=== PATIENT | female | born 1995 | race Hispanic/Latino ===

== ENCOUNTER 2019-04-04 16:34 | Emergency (ER) | payer BC ==
[~2019-04-04 16:34] MED LIST: ALBU2.5V2 IH; ALBU8.5H8 IH; BENZ-39 PO; FLUT1DIS IH; IPRA3AMP24 IH; LEVO500T2 PO; LEVO88TA7 PO; METH4TAB3 PO; MONT10TA21 PO; PRED20TA3 PO
[2019-04-04] MEDS ORDERED: METHYLPREDNISOLONE SOD SUCC 40MG/ML 1ML ONE (16:58)
[2019-04-04] MEDS ORDERED: IPRATROPIUM/ALBUTEROL SULFATE 3 ML SOLUTION IH ONE (17:04)
[2019-04-04] MEDS ORDERED: ALBUTEROL SULFATE 0.083% 2.5 MG/3 ML INH IH ONE (18:30)
== END 2019-04-04 19:21 | disposition home or self-care (01) ==
LOC: EDH 16:34
DX: J45.901 Unspecified asthma with (acute) exacerbation (principal); E07.9 Disorder of thyroid, unspecified; Z88.0 Allergy status to penicillin; Z88.8 Allergy status to other drugs, medicaments and biological substances
CPT/HCPCS: 71045; 94640 ×2; 96374; 99284; J2920

== ENCOUNTER 2019-08-07 21:53 | Emergency (ER) | payer BC, OTHER ==
[2019-08-07] MEDS ORDERED: DIPHENHYDRAMINE HCL 25 MG CAPSULE ONE (23:14)
[2019-08-07] MEDS ORDERED: IPRATROPIUM/ALBUTEROL SULFATE 3 ML SOLUTION IH ONE (23:21)
[2019-08-07 23:24] LABS: APPEARANCE,URINE Cloudy (CLEAR); BILIRUBIN,URINE Negative (NEGATIVE); COLOR,URINE Yellow (YELLOW); GLUCOSE, URINE (UA) Negative (NEGATIVE); KETONES,URINE Trace mg/dL (NEGATIVE); LEUKOCYTE ESTERASE ,URINE Negative (NEGATIVE); NITRATE,URINE Negative (NEGATIVE); OCCULT BLOOD,URINE Negative (NEGATIVE); PH,URINE 6.5 (5.0-8.0); PROTEIN,URINE POS 1+ mg/dL (NEGATIVE)
[2019-08-07 23:26] LABS: HCG,QUAL RESULT NEGATIVE (NEGATIVE)
[2019-08-07 23:31] LABS: BACTERIA,URINE None Seen /HPF (None Seen); MUCUS,URINE Few LPF (None Seen); RBC,URINE None Seen /HPF (0-1); SQUAMOUS EPITHELIAL CELL,UR Moderate /HPF (0-2); WBC,URINE None Seen /HPF (0-1)
[2019-08-07 23:40] LABS: RAPID GROUP A STREP NEGATIVE (NEGATIVE)
[2019-08-07 23:51] LABS: INFLUENZA TYPE A NEGATIVE FOR TYPE A (NEG); INFLUENZA TYPE B NEGATIVE FOR TYPE B (NEG)
[2019-08-08] MEDS ORDERED: METHYLPREDNISOLONE SOD SUCC 125MG/2ML VIAL ONE (00:15)
[2019-08-08] MEDS ORDERED: ALBUTEROL SULFATE 0.083% 2.5 MG/3 ML INH IH ONE (00:17)
[2019-08-08] MEDS ORDERED: PREDNISONE 20 MG TABLET ONE (00:50)
[2019-08-08] MEDS ORDERED: IPRATROPIUM/ALBUTEROL SULFATE 3 ML SOLUTION IH ONE (00:50)
== END 2019-08-08 02:13 | disposition home or self-care (01) ==
LOC: EDH 21:53
DX: J45.901 Unspecified asthma with (acute) exacerbation (principal); E07.9 Disorder of thyroid, unspecified; Z90.89 Acquired absence of other organs; Z88.0 Allergy status to penicillin; Z72.0 Tobacco use
CPT/HCPCS: 71046; 81001; 81025; 87804 ×2; 87880; 94640 ×3; 96372; 99285; J2930; Q0163

== ENCOUNTER 2019-09-19 01:37 | Emergency (ER) | payer OTHER ==
[2019-09-19] MEDS ORDERED: ALBUTEROL INHALER 90MCG/INH IH ONE (01:38)
[2019-09-19] MEDS ORDERED: KETOROLAC TROMETHAMINE 30MG/ML IV ONE (01:38)
[2019-09-19] MEDS ORDERED: DEXAMETHASONE SOD PHOSPHATE 10MG/ML 1ML VIAL IM ONE (01:38)
[2019-09-19] MEDS ORDERED: LEVOFLOXACIN 500 MG/D5W 100 ML 100 ML IV ONE (01:38)
[2019-09-19] MEDS ORDERED: ACETAMINOPHEN EXTRA STRENGTH 500 MG TABLET PO ONE (01:38)
[2019-09-19] MEDS ORDERED: SODIUM CHLORIDE 0.9% 500ML 500 ML IV ONE (01:38)
[2019-09-19 02:39] LABS: BASOPHILS % (AUTO) 0.6 % (0.0-5.0); EOSINOPHILS % (AUTO) 3.9 % (0.0-8.0); HEMATOCRIT 42.2 % (36-48); LYMPHOCYTES % (AUTO) 24.6 % (21.0-51.0); MEAN CORPUSCULAR HEMOGLOBIN 28.9 pg (27.0-33.0); MEAN CORPUSCULAR HGB CONC 33.2 g/dL (32.0-36.0); NEUTROPHILS % (AUTO) 61.6 % (40.0-77.0); PLATELET COUNT (AUTO) 362 K/uL (130-400); RED BLOOD CELL COUNT(AUTO) 4.85 MIL/uL (4.00-5.50); RED CELL DISTRIBUTION WIDTH 13.2 % (11.0-15.5); WHITE BLOOD COUNT (AUTO) 12.6 K/uL (4.8-10.8)
[2019-09-19 02:49] LABS: POTASSIUM 3.6 mmol/L (3.5-5.1)
[2019-09-19 02:54] LABS: ALBUMIN 3.8 g/dL (3.5-5.0); BILIRUBIN,DIRECT 0.2 mg/dL (0.0-0.3); BILIRUBIN,TOTAL 0.4 mg/dL (0.2-1.0); CRP QUANTITATIVE 25.6 mg/L (0.00-9.0); TOTAL PROTEIN, SERUM 7.9 g/dL (6.0-8.3)
[2019-09-19 03:08] LABS: FERRITIN 58 ng/mL (15-150)
[2019-09-19] MEDS ORDERED: ONDANSETRON HCL 4 MG/2 ML VIAL ONE (03:09)
[2019-09-19 03:10] LABS: B-TYPE NATRIURETIC PEPTIDE 5 pg/mL (0-100)
[2019-09-19] MEDS ORDERED: MAGNESIUM 2GM PREMIX 50ML 50 ML IV ONE (04:24)
== END 2019-09-19 07:15 | disposition home or self-care (01) ==
LOC: EDH 01:37
DX: U07.1 COVID-19 (principal); J45.901 Unspecified asthma with (acute) exacerbation; R05 Cough; R50.9 Fever, unspecified; R06.02 Shortness of breath; Z88.0 Allergy status to penicillin; Z88.8 Allergy status to other drugs, medicaments and biological substances; Z98.890 Other specified postprocedural states
CPT/HCPCS: 36415; 71045; 80048; 80076; 81025; 82550; 82728; 83605; 83880; 84484; 85025; 85378; 86140; 87040; 93005; 96365; 96366; 96367; 96375; 99291; J1100; J1885; J1956; J2405; J3475; J7040

== ENCOUNTER 2019-09-26 10:04 | Emergency (ER) | payer OTHER ==
[2019-09-26] MEDS ORDERED: ALBUTEROL INHALER 90MCG/INH IH ONE (10:47)
[2019-09-26] MEDS ORDERED: KETOROLAC TROMETHAMINE 30MG/ML ONE (10:48)
[2019-09-26] MEDS ORDERED: METHYLPREDNISOLONE SOD SUCC 125MG/2ML VIAL ONE (10:48)
[2019-09-26 11:23] LABS: BASOPHILS % (AUTO) 0.5 % (0.0-5.0); EOSINOPHILS % (AUTO) 7.3 % (0.0-8.0); HEMATOCRIT 43.4 % (36-48); MEAN CORPUSCULAR HEMOGLOBIN 28.3 pg (27.0-33.0); MEAN CORPUSCULAR HGB CONC 32.7 g/dL (32.0-36.0); MEAN CORPUSCULAR VOLUME 86.5 fL (79-99); NEUTROPHILS % (AUTO) 63.7 % (40.0-77.0); PLATELET COUNT (AUTO) 325 K/uL (130-400); RED BLOOD CELL COUNT(AUTO) 5.02 MIL/uL (4.00-5.50); RED CELL DISTRIBUTION WIDTH 13.2 % (11.0-15.5); WHITE BLOOD COUNT (AUTO) 15.4 K/uL (4.8-10.8)
[2019-09-26 11:46] LABS: POTASSIUM 3.9 mmol/L (3.5-5.1)
[2019-09-26 11:54] LABS: ALBUMIN 3.7 g/dL (3.5-5.0); BILIRUBIN,TOTAL 0.4 mg/dL (0.2-1.0); TOTAL PROTEIN, SERUM 7.8 g/dL (6.0-8.3)
== END 2019-09-26 13:56 | disposition home or self-care (01) ==
LOC: EDH 10:04
DX: U07.1 COVID-19 (principal); J45.901 Unspecified asthma with (acute) exacerbation; Z88.0 Allergy status to penicillin; E07.9 Disorder of thyroid, unspecified; Z98.890 Other specified postprocedural states; Z88.8 Allergy status to other drugs, medicaments and biological substances
CPT/HCPCS: 36415; 71045; 80053; 85025; 96374; 96375; 99291; J1885; J2930

== ENCOUNTER 2020-02-16 17:33 | Emergency (ER) | payer OTHER, SELFPAY ==
[2020-02-16] MEDS ORDERED: ONDANSETRON 4 MG TABLET ONE (17:47)
== END 2020-02-16 18:56 | disposition home or self-care (01) ==
LOC: EDH 17:33
DX: J45.909 Unspecified asthma, uncomplicated (principal); R07.89 Other chest pain; R06.00 Dyspnea, unspecified; R11.0 Nausea; G43.909 Migraine, unspecified, not intractable, without status migrainosus; Z90.49 Acquired absence of other specified parts of digestive tract; Z88.0 Allergy status to penicillin; Z88.8 Allergy status to other drugs, medicaments and biological substances
CPT/HCPCS: 71045; 93005; 99283; Q0162

== ENCOUNTER 2020-03-16 10:36 | Emergency (ER) | payer SELFPAY ==
[2020-03-16 10:53] LABS: BASOPHILS % (AUTO) 0.8 % (0.0-5.0); EOSINOPHILS % (AUTO) 8.2 % (0.0-8.0); HEMATOCRIT 44.1 % (36-48); MEAN CORPUSCULAR HEMOGLOBIN 27.5 pg (27.0-33.0); MEAN CORPUSCULAR HGB CONC 31.7 g/dL (32.0-36.0); MEAN CORPUSCULAR VOLUME 86.6 fL (79-99); MONOCYTES % (AUTO) 7.5 % (3.0-13.0); NEUTROPHILS % (AUTO) 47.1 % (40.0-77.0); PLATELET COUNT (AUTO) 354 K/uL (130-400); RED BLOOD CELL COUNT(AUTO) 5.09 MIL/uL (4.00-5.50); RED CELL DISTRIBUTION WIDTH 14.7 % (11.0-15.5); WHITE BLOOD COUNT (AUTO) 11.9 K/uL (4.8-10.8)
[2020-03-16] MEDS ORDERED: IPRATROPIUM/ALBUTEROL SULFATE 3 ML SOLUTION IH ONE (11:03)
[2020-03-16] MEDS ORDERED: ALBUTEROL SULFATE 0.083% 2.5 MG/3 ML INH IH ONE (11:03)
[2020-03-16] MEDS ORDERED: METHYLPREDNISOLONE SOD SUCC 125MG/2ML VIAL ONE (11:05)
[2020-03-16] MEDS ORDERED: CEFTRIAXONE SODIUM 1 GM ONE (11:55)
[2020-03-16] MEDS ORDERED: AZITHROMYCIN 250 MG TABLET PO ONE (11:56)
[2020-03-16 12:03] LABS: POTASSIUM 3.6 mmol/L (3.5-5.1)
[2020-03-16 12:08] LABS: ALBUMIN 3.5 g/dL (3.5-5.0); BILIRUBIN,TOTAL 0.2 mg/dL (0.2-1.0); TOTAL PROTEIN, SERUM 7.7 g/dL (6.0-8.3)
== END 2020-03-16 13:36 | disposition home or self-care (01) ==
LOC: EDH 10:36
DX: J45.21 Mild intermittent asthma with (acute) exacerbation (principal); Z20.828 Contact with and (suspected) exposure to other viral communicable diseases; Z88.0 Allergy status to penicillin; G43.909 Migraine, unspecified, not intractable, without status migrainosus
CPT/HCPCS: 36415; 71045; 80053; 85025; 87426; 93005; 94640 ×3; 96374; 96375; 99291; J0696; J2930; U0003

== ENCOUNTER 2020-03-16 18:41 | Inpatient (IN) | payer SELFPAY ==
[2020-03-16] MEDS ORDERED: METHYLPREDNISOLONE SOD SUCC 125MG/2ML VIAL ONE (18:52)
[2020-03-16] MEDS ORDERED: IPRATROPIUM/ALBUTEROL SULFATE 3 ML SOLUTION IH ONE (18:52)
[2020-03-16] MEDS ORDERED: IPRATROPIUM/ALBUTEROL SULFATE 3 ML SOLUTION IH PRN (19:45)
[2020-03-16] MEDS ORDERED: ERGOCALCIFEROL (VITAMIN D2) 50,000 UNIT CAPSULE PO ONE (19:45)
[2020-03-16] MEDS ORDERED: MAGNESIUM 2GM PREMIX 50ML 50 ML IV SCH (19:45)
[2020-03-16] MEDS ORDERED: DIPHENHYDRAMINE HCL 25 MG CAPSULE PO PRN (20:00)
[2020-03-16] MEDS: AZITHROMYCIN 500MG+NS 250ML 250 ML IV SCH (20:00)
[2020-03-16] MEDS ORDERED: ONDANSETRON HCL 4 MG/2 ML VIAL IV PRN (20:00)
[2020-03-16] MEDS ORDERED: NITROGLYCERIN 0.4 MG SL TAB SL PRN (20:00)
[2020-03-16] MEDS ORDERED: ACETAMINOPHEN 325 MG TAB PO PRN ×2 (20:00)
[2020-03-16 20:13] LABS: CREATINE KINASE, TOTAL 279 U/L (21-232); LACTATE DEHYDROGENASE 287 U/L (81-234)
[2020-03-16] MEDS ORDERED: IOHEXOL-350 75 ML VIAL IV ONE (20:18)
[2020-03-16 20:22] LABS: FERRITIN 27 ng/mL (15-150)
[2020-03-16 20:28] LABS: HEMOGLOBIN A1C 5.9 % (4.0-6.0)
[2020-03-16 20:46] LABS: ABG BASE EXCESS -4.2 mmol/L (-2.0-3.0); ABG HCO3 18.1 mmol/L (21.0-28.0); ABG OXYGEN SATURATION 91.7 % (95.0-99.0); ABG PCO2 27 mmHg (32-45)
[2020-03-16] MEDS: ACETYLCYSTEINE 600 MG CAPSULE PO SCH (21:00)
[2020-03-16] MEDS: FAMOTIDINE 20MG TAB 20 MG TAB PO SCH (21:00)
[2020-03-16] MEDS ORDERED: FAMOTIDINE 20MG TAB 20 MG TAB ONE (21:02)
[2020-03-16] MEDS ORDERED: ERGOCALCIFEROL (VITAMIN D2) 50,000 UNIT CAPSULE ONE (21:02)
[2020-03-16] MEDS ORDERED: ACETYLCYSTEINE 600 MG CAPSULE ONE (21:03)
[2020-03-16] MEDS ORDERED: SODIUM CHLORIDE 0.9% 1000ML 1,000 ML IV SCH (22:00)
[2020-03-16] MEDS ORDERED: IPRATROPIUM/ALBUTEROL SULFATE 3 ML SOLUTION IH SCH (22:00)
[2020-03-17] MEDS ORDERED: ACETAMINOPHEN 325 MG TAB ONE (00:39)
[2020-03-17] MEDS ORDERED: MAGNESIUM 2GM PREMIX 50ML 50 ML IV ONE (00:51)
[2020-03-17 01:24] LABS: AMPHET/METH SCREEN,URINE NEGATIVE (NEGATIVE); BARBITURATE SCREEN, URINE NEGATIVE (NEGATIVE); BENZODIAZEPINES SCREEN,URINE NEGATIVE (NEGATIVE); CANNABINOID SCREEN,URINE NEGATIVE (NEGATIVE); COCAINE SCREEN,URINE NEGATIVE (NEGATIVE); OPIATE SCREEN,URINE NEGATIVE (NEGATIVE); PHENCYCLIDINE SCREEN,URINE NEGATIVE (NEGATIVE)
[2020-03-17] MEDS: METHYLPREDNISOLONE SOD SUCC 40MG/ML 1ML IVP SCH ×3 (04:00→21:37)
[2020-03-17 05:59] LABS: BASOPHILS % (AUTO) 0.2 % (0.0-5.0); EOSINOPHILS % (AUTO) 0.2 % (0.0-8.0); HEMATOCRIT 40.9 % (36-48); LYMPHOCYTES % (AUTO) 13.8 % (21.0-51.0); MEAN CORPUSCULAR HEMOGLOBIN 27.4 pg (27.0-33.0); MEAN CORPUSCULAR VOLUME 85.6 fL (79-99); MONOCYTES % (AUTO) 3.9 % (3.0-13.0); NEUTROPHILS % (AUTO) 80.8 % (40.0-77.0); PLATELET COUNT (AUTO) 357 K/uL (130-400); RED BLOOD CELL COUNT(AUTO) 4.78 MIL/uL (4.00-5.50); RED CELL DISTRIBUTION WIDTH 15.1 % (11.0-15.5); WHITE BLOOD COUNT (AUTO) 12.9 K/uL (4.8-10.8)
[2020-03-17 06:12] LABS: ALANINE AMINOTRANSFERASE 47 U/L (12-78); ALBUMIN 3.4 g/dL (3.5-5.0); ASPARTATE AMINOTRANSFERASE 21 U/L (10-37); BILIRUBIN,TOTAL 0.2 mg/dL (0.2-1.0); CARBON DIOXIDE 23 mmol/L (21-32); CHLORIDE 108 mmol/L (101-111); CREATININE 0.7 mg/dL (0.5-1.5); GLOMERULAR FILTR. RATE CALC 110 mL/min (>60); GLUCOSE,RANDOM 141 mg/dL (70-105); LACTATE DEHYDROGENASE 167 U/L (81-234); POTASSIUM 4.3 mmol/L (3.5-5.1); SODIUM SERUM 141 mmol/L (136-145); TOTAL PROTEIN, SERUM 7.5 g/dL (6.0-8.3); UREA NITROGEN, BLOOD 13 mg/dL (7-18)
[2020-03-17] MEDS ORDERED: SODIUM CHLORIDE 3% FOR INHALATION 4 ML/AMP VIAL.NEB IH ONE ×2 (06:24→09:58)
[2020-03-17] MEDS ORDERED: IPRATROPIUM 0.5 MG/2.5 ML INH IH ONE ×3 (06:24→13:58)
[2020-03-17] MEDS: IPRATROPIUM 0.5 MG/2.5 ML INH IH SCH ×4 (06:25→22:36)
[2020-03-17] MEDS ORDERED: ASCORBIC ACID 500 MG TAB ONE (08:53)
[2020-03-17] MEDS ORDERED: METHYLPREDNISOLONE SOD SUCC 40MG/ML 1ML ONE (08:53)
[2020-03-17] MEDS ORDERED: ENOXAPARIN SODIUM 40 MG/0.4 ML SYRINGE SQ ONE (08:54)
[2020-03-17] MEDS ORDERED: ACETYLCYSTEINE 600 MG CAPSULE ONE (08:54)
[2020-03-17] MEDS ORDERED: FAMOTIDINE 20MG TAB 20 MG TAB ONE (08:54)
[2020-03-17] MEDS: ASCORBIC ACID 500 MG TAB PO SCH (09:00)
[2020-03-17] MEDS: ACETYLCYSTEINE 600 MG CAPSULE PO SCH ×2 (09:00→21:37)
[2020-03-17] MEDS: FAMOTIDINE 20MG TAB 20 MG TAB PO SCH ×2 (09:00→21:37)
[2020-03-17] MEDS: ENOXAPARIN SODIUM 40 MG/0.4 ML SYRINGE SQ SCH (09:00)
[2020-03-17] MEDS: ZINC SULFATE 220 CAPSULE PO SCH (09:00)
[2020-03-17] MEDS ORDERED: AZITHROMYCIN 500MG+NS 250ML 250 ML IV ONE (11:47)
[2020-03-17] MEDS ORDERED: ZINC SULFATE 220 CAPSULE ONE (14:20)
--- NOTE | 2020-03-17 14:37 | NUR ---
cm note met with patient and states resides at home with parents, independent with adls/ambulation no dme, only a nebulizer. 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 dc plan is back home at al. states no dc needs. discussed low iincome clinics in the area and rx assist programs. pt verbalizes understanding. Addendum: 03/17/20 at 1447 by LEONARDO CHAPMAN CM Amended: Links added.
[2020-03-17 20:00] VITALS: BP 128/76
[2020-03-17] MEDS: AZITHROMYCIN 500MG+NS 250ML 250 ML IV SCH (21:37)
--- NOTE | 2020-03-17 22:00 | NUR ---
FAMILY SYLVIA PHILLIPS STATED THAT THE PT'S MOTHER CALLED TO SPEAK WITH SYLVIA PHILLIPS AND WAS VERY UP-SET. HEYDI (PT) CALLED HER MOTHER AND TOLD HER MOTHER SHE DID NOT RECEIVE A DINNER TRAY. THE PT'S MOTHER STATED SHE WAS GOING TO CALL THE CNO AND THE VIOLIN REPAIRER TO COMPLAIN. THE PT'S MOTHER ALSO SAID SHE WAS GOING TO CALL THE PRIMARY DOCTOR TO HAVE THE PT TRANSFERRED. DOMINICK GLYNN GUTHRIE STATED SHE HAD OFFERED THE PT A SANDWICH TWICE AT APPROXIMATELY 2000. 2099: CALLED PLACED TO HOSPITALIST ANSWERING SERVICE 2104: Davey FLORES NP RETURNED THE PAGE AND MADE AWARE CURRENT EVENTS. 2134: STANLEY LUGGAGE REPAIRER CALLED AND ASKED FOR COOK SHIP TO GET JELLO FOR THE PT 2135: COOK SHIP THEN TOOK PT A HAM SANDWICH WITH PEACHES AND CARROTS. JELLO. APPLE JUICE AND WATER. TWO CUPS - ONE WITH ICE AND ONE WITHOUT, TWO STRAWS, AND TWO SPOONS. I INFORMED THE PT I HAD BROUGHT HER SOME FOOD. THE MOTHER STATED "WE ARE BRINGING HER FOOD" I THEN STATED "THAT WAS GREAT BUT HERE IS SOME FOOD FOR NOW" PT WAS ON FACETIME WITH MOTHER AND SISTER. 2155: PT RECEIVED HER FOOD FROM [employer]
--- NOTE | 2020-03-17 22:11 | NUR ---
20:32 Pt's mother called very upset that at 17:00 pt was having low O2 Sat and no one had check on her. She std that pt had Facetimed with her and showed her the monitor with low oxygen levels. Mother also std that currently pt had not been provided with dinner, and that she would bring the pt food if she had to. I informed her that I would investigate. I called the primary nurse and asked her to call the mother (Susan Rosenthal, ) and tell her it she could bring the pt food. 21:23 The mother called again very upset that no one had take the pt any food. I apologized and told her I misunderstood thinking that the mother was bringing her food. The mother then requested we take steps to transfer [place] [facility] I explained that we could not initiate a transfer and the pt does not require a higher level of care. The mother continued with an angry tone that we are not providing basic care. I told her I would send an email to the community outreach advocate to address her concerns. She then wanted to know what I was doing now to address the situation, and I asked her what she wanted me to and she said to at have the pt offered some Jello. I said I would do that and the mother hung up on me. 21:45 I called the charge regarding the mother's concerns and the charge nurse informed me that the pt was offered dinner twice and she refused it. Addendum: 03/17/20 at 2227 by USMAN HUDSON RN RN Tan GOLDEN
[2020-03-18] VITALS: BP 114/78
[2020-03-18] MEDS: IPRATROPIUM 0.5 MG/2.5 ML INH IH SCH ×5 (02:51→18:00)
[2020-03-18 03:53] LABS: BASOPHILS % (AUTO) 0.2 % (0.0-5.0); EOSINOPHILS % (AUTO) 0.1 % (0.0-8.0); HEMATOCRIT 40.4 % (36-48); LYMPHOCYTES % (AUTO) 12.1 % (21.0-51.0); MEAN CORPUSCULAR HGB CONC 32.4 g/dL (32.0-36.0); MEAN CORPUSCULAR VOLUME 86.3 fL (79-99); MONOCYTES % (AUTO) 8.1 % (3.0-13.0); NEUTROPHILS % (AUTO) 78.4 % (40.0-77.0); PLATELET COUNT (AUTO) 354 K/uL (130-400); RED BLOOD CELL COUNT(AUTO) 4.68 MIL/uL (4.00-5.50); RED CELL DISTRIBUTION WIDTH 15.1 % (11.0-15.5); WHITE BLOOD COUNT (AUTO) 19.5 K/uL (4.8-10.8)
[2020-03-18 04:00] VITALS: BP 122/64
[2020-03-18 04:14] LABS: ALANINE AMINOTRANSFERASE 39 U/L (12-78); ALBUMIN 3.3 g/dL (3.5-5.0); ASPARTATE AMINOTRANSFERASE 16 U/L (10-37); BILIRUBIN,TOTAL 0.1 mg/dL (0.2-1.0); CARBON DIOXIDE 24 mmol/L (21-32); CHLORIDE 107 mmol/L (101-111); CREATININE 0.9 mg/dL (0.5-1.5); GLOMERULAR FILTR. RATE CALC 82 mL/min (>60); GLUCOSE,RANDOM 120 mg/dL (70-105); LACTATE DEHYDROGENASE 199 U/L (81-234); POTASSIUM 4.5 mmol/L (3.5-5.1); SODIUM SERUM 141 mmol/L (136-145); TOTAL PROTEIN, SERUM 7.5 g/dL (6.0-8.3); UREA NITROGEN, BLOOD 19 mg/dL (7-18)
[2020-03-18] MEDS: METHYLPREDNISOLONE SOD SUCC 40MG/ML 1ML IVP SCH ×2 (04:14→12:04)
[2020-03-18 07:00] VITALS: BP 119/57
[2020-03-18] MEDS: FAMOTIDINE 20MG TAB 20 MG TAB PO SCH ×2 (09:05→21:46)
[2020-03-18] MEDS: ASCORBIC ACID 500 MG TAB PO SCH (09:05)
[2020-03-18] MEDS: ZINC SULFATE 220 CAPSULE PO SCH (09:05)
[2020-03-18] MEDS: ENOXAPARIN SODIUM 40 MG/0.4 ML SYRINGE SQ SCH (09:06)
[2020-03-18] MEDS: ACETYLCYSTEINE 600 MG CAPSULE PO SCH ×2 (09:13→21:46)
[2020-03-18 11:00] VITALS: BP 144/71
[2020-03-18 15:00] VITALS: BP 120/70
[2020-03-18] MEDS ORDERED: ALBUTEROL INHALER 90MCG/INH IH PRN (20:30)
[2020-03-18] MEDS: AZITHROMYCIN 500MG+NS 250ML 250 ML IV SCH (21:46)
[2020-03-18 22:40] VITALS: BP 152/95
--- NOTE | 2020-03-18 22:41 | NUR ---
CARE Received pt from 2nd floor ,pt aao x 3,denies pain or sob.
[2020-03-19] VITALS (7 sets, daily range): BP systolic 117–154; BP diastolic 74–98
[2020-03-19] MEDS: IPRATROPIUM 0.5 MG/2.5 ML INH IH SCH ×4 (02:13→14:11)
[2020-03-19 05:03] LABS: BASOPHILS % (AUTO) 0.2 % (0.0-5.0); EOSINOPHILS % (AUTO) 0.1 % (0.0-8.0); HEMATOCRIT 40.2 % (36-48); LYMPHOCYTES % (AUTO) 30.7 % (21.0-51.0); MEAN CORPUSCULAR HEMOGLOBIN 27.1 pg (27.0-33.0); MEAN CORPUSCULAR HGB CONC 31.6 g/dL (32.0-36.0); MEAN CORPUSCULAR VOLUME 85.9 fL (79-99); MONOCYTES % (AUTO) 7.9 % (3.0-13.0); NEUTROPHILS % (AUTO) 60.4 % (40.0-77.0); PLATELET COUNT (AUTO) 318 K/uL (130-400); RED BLOOD CELL COUNT(AUTO) 4.68 MIL/uL (4.00-5.50); RED CELL DISTRIBUTION WIDTH 14.7 % (11.0-15.5); WHITE BLOOD COUNT (AUTO) 16.8 K/uL (4.8-10.8)
[2020-03-19 05:22] LABS: ALANINE AMINOTRANSFERASE 32 U/L (12-78); ALBUMIN 3.2 g/dL (3.5-5.0); ASPARTATE AMINOTRANSFERASE 14 U/L (10-37); BILIRUBIN,TOTAL 0.2 mg/dL (0.2-1.0); CARBON DIOXIDE 27 mmol/L (21-32); CHLORIDE 105 mmol/L (101-111); CREATININE 0.9 mg/dL (0.5-1.5); GLOMERULAR FILTR. RATE CALC 82 mL/min (>60); GLUCOSE,RANDOM 98 mg/dL (70-105); LACTATE DEHYDROGENASE 151 U/L (81-234); POTASSIUM 3.8 mmol/L (3.5-5.1); SODIUM SERUM 140 mmol/L (136-145); UREA NITROGEN, BLOOD 22 mg/dL (7-18)
[2020-03-19] MEDS: ASCORBIC ACID 500 MG TAB PO SCH (09:12)
[2020-03-19] MEDS: FAMOTIDINE 20MG TAB 20 MG TAB PO SCH ×2 (09:12→21:09)
[2020-03-19] MEDS: ACETYLCYSTEINE 600 MG CAPSULE PO SCH ×2 (09:12→21:09)
[2020-03-19] MEDS: PREDNISONE 20 MG TABLET PO SCH (09:13)
[2020-03-19] MEDS: ZINC SULFATE 220 CAPSULE PO SCH (09:13)
[2020-03-19] MEDS: ENOXAPARIN SODIUM 40 MG/0.4 ML SYRINGE SQ SCH (09:15)
[2020-03-19] MEDS: CETIRIZINE HCL 5 MG TABLET PO SCH (16:47)
[2020-03-19] MEDS: MAGNESIUM OXIDE 400 MG TABLET PO SCH (16:47)
[2020-03-19] MEDS: IPRATROPIUM/ALBUTEROL SULFATE 3 ML SOLUTION IH SCH ×2 (18:16→21:45)
[2020-03-19] MEDS: ADVAIR 100-50 DISKUS IH SCH (21:00)
[2020-03-20] MEDS: IPRATROPIUM/ALBUTEROL SULFATE 3 ML SOLUTION IH SCH ×3 (01:19→10:13)
[2020-03-20 03:37] VITALS: BP 125/89
[2020-03-20] MEDS ORDERED: LEVOTHYROXINE 88 MCG TABLET PO SCH (06:30)
[2020-03-20 07:13] LABS: BASOPHILS % (AUTO) 0.3 % (0.0-5.0); EOSINOPHILS % (AUTO) 0.5 % (0.0-8.0); HEMATOCRIT 41.8 % (36-48); LYMPHOCYTES % (AUTO) 36.1 % (21.0-51.0); MEAN CORPUSCULAR HEMOGLOBIN 27.1 pg (27.0-33.0); MEAN CORPUSCULAR HGB CONC 32.1 g/dL (32.0-36.0); MEAN CORPUSCULAR VOLUME 84.6 fL (79-99); MONOCYTES % (AUTO) 8.6 % (3.0-13.0); NEUTROPHILS % (AUTO) 53.7 % (40.0-77.0); PLATELET COUNT (AUTO) 326 K/uL (130-400); RED BLOOD CELL COUNT(AUTO) 4.94 MIL/uL (4.00-5.50); RED CELL DISTRIBUTION WIDTH 14.4 % (11.0-15.5); WHITE BLOOD COUNT (AUTO) 17.4 K/uL (4.8-10.8)
[2020-03-20 07:21] LABS: ALBUMIN 3.3 g/dL (3.5-5.0); BILIRUBIN,TOTAL 0.3 mg/dL (0.2-1.0); CREATININE 0.9 mg/dL (0.5-1.5); POTASSIUM 3.5 mmol/L (3.5-5.1); TOTAL PROTEIN, SERUM 7.2 g/dL (6.0-8.3)
[2020-03-20 08:00] VITALS: BP 118/83
[2020-03-20] MEDS ORDERED: MONTELUKAST SODIUM 10 MG TAB PO SCH (09:00)
[2020-03-20] MEDS ORDERED: NON-FORMULARY MEDICATION 1 EACH (Levothyroxine Sodium 88 MCG) PO SCH (09:00)
[2020-03-20] MEDS: ADVAIR 100-50 DISKUS IH SCH (09:00)
[2020-03-20] MEDS: PREDNISONE 20 MG TABLET PO SCH (09:39)
[2020-03-20] MEDS: MAGNESIUM OXIDE 400 MG TABLET PO SCH (09:39)
[2020-03-20] MEDS: ACETYLCYSTEINE 600 MG CAPSULE PO SCH (09:40)
[2020-03-20] MEDS: ASCORBIC ACID 500 MG TAB PO SCH (09:40)
[2020-03-20] MEDS: FAMOTIDINE 20MG TAB 20 MG TAB PO SCH (09:40)
[2020-03-20] MEDS: CETIRIZINE HCL 5 MG TABLET PO SCH (09:40)
[2020-03-20] MEDS: ZINC SULFATE 220 CAPSULE PO SCH (09:40)
[2020-03-20] MEDS: ENOXAPARIN SODIUM 40 MG/0.4 ML SYRINGE SQ SCH (09:42)
[2020-03-20 12:00] VITALS: BP 141/88
[2020-03-20] MEDS ORDERED: MONT10TA21 PO (12:46)
[2020-03-20] MEDS ORDERED: PRED20TA3 PO (12:46)
--- NOTE | 2020-03-20 15:10 | NUR ---
DISCHARGE PATIENT GIVEN DISCHARGE INSTRUCTIONS VIA TEACH BACK. 20G PIV TO LAC DISCONTINUED, TIP INTACT. E-RX SENT TO [facility] IN [place] FOR PREDNISONE AND SINGULAIR. PATIENT TO MAKE FOLLOW UP APPOINTMENT WITH [facility] [place] 1 [place]. PATIENT STABLE AT THIS TIME. PATIENT WHEELED TO [facility] FOR DISCHARGE BY JERRI CONTRERAS.
== END 2020-03-20 16:00 | disposition home or self-care (01) | DRG 871 ==
LOC: EDH 18:41 → EDHIP 18:42 → 2CV 03-17 14:33 → 3DH 03-18 21:50
PROVIDERS: ADMIT Internal Medicine; ATTEND Internal Medicine
DX: A41.9 Sepsis, unspecified organism (principal); J96.01 Acute respiratory failure with hypoxia; J45.901 Unspecified asthma with (acute) exacerbation; E66.2 Morbid (severe) obesity with alveolar hypoventilation; Z68.43 Body mass index [BMI] 50.0-59.9, adult; E87.3 Alkalosis; E03.9 Hypothyroidism, unspecified; K76.0 Fatty (change of) liver, not elsewhere classified; Z20.828 Contact with and (suspected) exposure to other viral communicable diseases; G43.909 Migraine, unspecified, not intractable, without status migrainosus; Z88.0 Allergy status to penicillin; Z88.8 Allergy status to other drugs, medicaments and biological substances; Z83.3 Family history of diabetes mellitus; Z82.5 Family history of asthma and other chronic lower respiratory diseases; Z82.49 Family history of ischemic heart disease and other diseases of the circulatory system
CPT/HCPCS: 31720; 36415; 36600; 71275; 80053; 80305; 82550; 82728; 82803; 83036; 83605; 83615; 83735; 84145; 84443; 84484; 84702; 85025; 85378; 86140; 87040; 87071; 87205; 93005; 93970; 94640; 94664; G0378; J0456; J1650; J2920; J2930; J3475; Q9967; U0003

== ENCOUNTER 2020-04-12 07:51 | Emergency (ER) | payer SELFPAY ==
[~2020-04-12 07:51] MED LIST changes: -LEVO500T2 PO; -METH4TAB3 PO
[2020-04-12 08:38] LABS: BASOPHILS % (AUTO) 0.4 % (0.0-5.0); EOSINOPHILS % (AUTO) 1.8 % (0.0-8.0); HEMATOCRIT 44.6 % (36-48); LYMPHOCYTES % (AUTO) 7.7 % (21.0-51.0); MEAN CORPUSCULAR HEMOGLOBIN 27.6 pg (27.0-33.0); MEAN CORPUSCULAR HGB CONC 32.1 g/dL (32.0-36.0); MEAN CORPUSCULAR VOLUME 86.1 fL (79-99); MONOCYTES % (AUTO) 8.4 % (3.0-13.0); NEUTROPHILS % (AUTO) 81.3 % (40.0-77.0); PLATELET COUNT (AUTO) 317 K/uL (130-400); RED BLOOD CELL COUNT(AUTO) 5.18 MIL/uL (4.00-5.50); RED CELL DISTRIBUTION WIDTH 15.3 % (11.0-15.5); WHITE BLOOD COUNT (AUTO) 13.6 K/uL (4.8-10.8)
[2020-04-12 08:44] LABS: ALBUMIN 3.8 g/dL (3.5-5.0); BILIRUBIN,TOTAL 0.3 mg/dL (0.2-1.0); CRP QUANTITATIVE 32.5 mg/L (0.00-9.0); POTASSIUM 3.4 mmol/L (3.5-5.1); TOTAL PROTEIN, SERUM 8.1 g/dL (6.0-8.3)
[2020-04-12 08:45] LABS: INR 0.95 (0.85-1.15); PARTIAL THROMBOPLASTIN TIME 26.6 SEC (26.3-35.5); PROTHROMBIN TIME 10.3 SEC (9.6-11.6)
[2020-04-12] MEDS ORDERED: DEXAMETHASONE SOD PHOSPHATE 4 MG/ML 1ML VIAL ONE (08:59)
[2020-04-12] MEDS ORDERED: ACETAMINOPHEN 325 MG TAB ONE (09:00)
[2020-04-12 09:25] LABS: ABG BASE EXCESS -1.1 mmol/L (-2.0-3.0); ABG HCO3 23.8 mmol/L (21.0-28.0); ABG OXYGEN SATURATION 91.8 % (95.0-99.0); ABG PCO2 40 mmHg (32-45)
[2020-04-12] MEDS ORDERED: ONDANSETRON HCL 4 MG/2 ML VIAL ONE (10:15)
== END 2020-04-12 11:05 | disposition home or self-care (01) ==
LOC: EDH 07:51
DX: J20.9 Acute bronchitis, unspecified (principal); Z20.828 Contact with and (suspected) exposure to other viral communicable diseases; J45.909 Unspecified asthma, uncomplicated; G43.909 Migraine, unspecified, not intractable, without status migrainosus; Z90.49 Acquired absence of other specified parts of digestive tract; Z87.891 Personal history of nicotine dependence; Z88.8 Allergy status to other drugs, medicaments and biological substances; Z88.0 Allergy status to penicillin
CPT/HCPCS: 36415; 36600; 71045; 80053; 82728; 82803; 84145; 85025; 85378; 85610; 85730; 86140; 86308; 87426; 87804 ×2; 93005; 96374; 96375; 99285; J1100; J2405; U0003

== ENCOUNTER 2020-04-26 00:15 | Emergency (ER) | payer SELFPAY ==
[2020-04-26] MEDS ORDERED: PREDNISONE 20 MG TABLET ONE (00:36)
[2020-04-26] MEDS ORDERED: ALBUTEROL SULFATE 0.083% 2.5 MG/3 ML INH IH ONE ×3 (00:43→01:20)
[2020-04-26] MEDS ORDERED: IPRATROPIUM/ALBUTEROL SULFATE 3 ML SOLUTION IH ONE (01:20)
[2020-04-26] MEDS ORDERED: DiphenhydrAMINE HCL 50 MG/ML VIAL ONE (01:21)
== END 2020-04-26 02:09 | disposition home or self-care (01) ==
LOC: EDH 00:15
DX: J45.41 Moderate persistent asthma with (acute) exacerbation (principal); G43.909 Migraine, unspecified, not intractable, without status migrainosus; Z90.49 Acquired absence of other specified parts of digestive tract; Z88.0 Allergy status to penicillin; Z88.8 Allergy status to other drugs, medicaments and biological substances
CPT/HCPCS: 94640 ×4; 96372; 99284; J1200

== ENCOUNTER 2020-12-15 01:36 | Emergency (ER) | payer SELFPAY ==
[~2020-12-15] VITALS: Ht 175.3 cm; Wt 147.4 kg
[2020-12-15 01:50] VITALS: BP 158/108
[2020-12-15] MEDS ORDERED: FAMOTIDINE 20MG VIAL IV ONE ×2 (02:30→02:48)
[2020-12-15] MEDS ORDERED: IPRATROPIUM/ALBUTEROL SULFATE 3 ML SOLUTION IH ONE (02:30)
[2020-12-15] MEDS ORDERED: SOLU-MEDROL 125MG VIAL IVP ONE (02:30)
[2020-12-15] MEDS ORDERED: SOLU-MEDROL 125MG VIAL ONE (02:48)
[2020-12-15 03:32] VITALS: BP 179/121
[2020-12-15] MEDS ORDERED: PRED20TA3 PO (04:49)
[2020-12-15 05:13] VITALS: BP 145/98
== END 2020-12-15 05:21 | disposition home or self-care (01) ==
LOC: EDH 01:36
DX: J45.41 Moderate persistent asthma with (acute) exacerbation (principal); Z20.822 Contact with and (suspected) exposure to COVID-19; E03.9 Hypothyroidism, unspecified; G43.909 Migraine, unspecified, not intractable, without status migrainosus; Z79.52 Long term (current) use of systemic steroids; Z79.51 Long term (current) use of inhaled steroids; Z79.899 Other long term (current) drug therapy; Z88.0 Allergy status to penicillin; Z88.8 Allergy status to other drugs, medicaments and biological substances
CPT/HCPCS: 71046; 87635; 94640; 96374; 96375; 99284; C9803; J2930; J3490

== ENCOUNTER 2024-01-03 17:19 | Emergency (ER) | payer BC, OTHER ==
[~2024-01-03] VITALS: Ht 175.3 cm; Wt 172.4 kg
[~2024-01-03 17:19] MED LIST changes: +FLUT1DIS3 IH; +LISI10TA24 PO; +LORA10TA7 PO; +MONT-46 PO; -MONT10TA21 PO; +OZEMPIC SQ; +SERT-438 PO; +SPIR25TA6 PO
[2024-01-03] MEDS: ONDANSETRON ODT 4MG TAB SL ONE (18:10)
[2024-01-03] MEDS: SOLU-MEDROL 125MG VIAL IM STA (18:10)
[2024-01-03] MEDS: KETOROLAC 60 MG VIAL (30MG/ML) IM ONE (18:11)
[2024-01-03 18:42] VITALS: PULSE 98; RESP 20
[2024-01-03] MEDS: ALBUTEROL 0.083% 2.5 MG/3 ML INH IH ONE (18:42)
[2024-01-03 18:56] VITALS: PULSE 96; RESP 18
[2024-01-03] MEDS: BUDESONIDE 0.5 MG/2 ML INH IH STA (18:56)
[2024-01-03] MEDS ORDERED: AZIT250T9 PO (19:05)
[2024-01-03] MEDS ORDERED: BUDE0.5A3 IH (19:05)
[2024-01-03] MEDS ORDERED: ACET-2079 PO (19:05)
[2024-01-03] MEDS ORDERED: METH4TAB3 PO (19:05)
[2024-01-03] MEDS ORDERED: BENZ-39 PO (19:05)
[2024-01-03 19:28] VITALS: BP 157/85; PULSE 90; RESP 18; O2SAT 98
== END 2024-01-03 19:36 | disposition home or self-care (01) ==
LOC: EDH 17:19
DX: U07.1 COVID-19 (principal); J45.901 Unspecified asthma with (acute) exacerbation; G44.89 Other headache syndrome; J45.909 Unspecified asthma, uncomplicated; I10 Essential (primary) hypertension; E03.9 Hypothyroidism, unspecified; G43.909 Migraine, unspecified, not intractable, without status migrainosus; Z88.0 Allergy status to penicillin; Z88.8 Allergy status to other drugs, medicaments and biological substances; Z79.899 Other long term (current) drug therapy; Z90.89 Acquired absence of other organs; Z98.890 Other specified postprocedural states
CPT/HCPCS: 99284; 96372 ×2; 94640; J2919; J1885